=== PATIENT | female | born 1975 | race Caucasian/White ===

== ENCOUNTER 2017-12-17 05:21 | Day surgery (SDC) | payer OTHER ==
[~2017-12-17] VITALS: Ht 160 cm; Wt 67.7 kg
[2017-12-17] MEDS ORDERED: LIDOCAINE-MPF 1%, 2ML ONE (06:01)
[2017-12-17] MEDS ORDERED: LACTATED RINGERS 1,000 ML IV SCH (06:20)
[2017-12-17] MEDS ORDERED: ACET-1600 PO (06:24)
[2017-12-17 06:30] VITALS: BP 131/70
[2017-12-17] MEDS ORDERED: LIDOCAINE-MPF 1%, 2ML INFIL ONE (06:30)
[2017-12-17 06:31] LABS: MEAN CORPUSCULAR HEMOGLOBIN 28.8 pg (27.0-34.8); MEAN CORPUSCULAR HGB CONC 32.9 g/dL (32.4-35.8); MEAN CORPUSCULAR VOLUME 87.7 fL (80-100); MEAN PLATELET VOLUME 7.8 fL (7.4-10.4); PLATELET COUNT 348 x10^3/uL (130-400); RED BLOOD COUNT 4.48 x10^6/uL (3.82-5.3); RED CELL DISTRIBUTION WIDTH 15.3 % (9.6-15.2)
[2017-12-17 06:31] LABS: HCG UR SG 1.025 (1.003-1.030)
[2017-12-17 06:34] LABS: INTERNATIONAL NORMALIZED RATIO 0.98 (0.93-1.1); PROTHROMBIN TIME 10.1 Seconds (9.6-11.5)
[2017-12-17 06:36] LABS: ALBUMIN 3.7 g/dL (3.4-5.0); ANION GAP 8 mmol/L (5-15); CALCIUM 8.9 mg/dL (8.5-10.1); CHLORIDE 108 mmol/L (98-107); CREATININE 0.62 mg/dL (0.55-1.02)
[2017-12-17 06:43] LABS: ALANINE AMINOTRANSFERASE 26 U/L (12-78); ALKALINE PHOSPHATASE 72 U/L (45-117); BILIRUBIN,TOTAL 0.2 mg/dL (0.2-1.0); TOTAL PROTEIN 7.8 g/dL (6.4-8.2)
[2017-12-17] MEDS ORDERED: BUPIVACAINE/PF 0.25% ONE (06:50)
[2017-12-17] MEDS ORDERED: EPINEPHRINE 1 MG/ML, 1ML ONE (06:51)
[2017-12-17 07:01] LABS: BASOPHILS # (AUTO) 0.02 x10^3/uL (0-0.1); BASOPHILS % (AUTO) 0 % (0-1); EOSINOPHILS # (AUTO) 0.41 x10^3/uL (0-0.4); EOSINOPHILS % (AUTO) 5 % (1-7); LYMPHOCYTES # (AUTO) 2.22 x10^3/uL (1-3.4); LYMPHOCYTES % (AUTO) 26 % (22-44); MD SCAN; MONOCYTES # (AUTO) 0.52 x10^3/uL (0.2-0.8); MONOCYTES % (AUTO) 6 % (2-9); NEUTROPHILS # (AUTO) 5.39 x10^3/uL (1.8-6.8); NEUTROPHILS % (AUTO) 63 % (42-75)
[2017-12-17] MEDS ORDERED: FENTANYL PF 250 MCG/5ML ONE (07:01)
[2017-12-17] MEDS ORDERED: MIDAZOLAM 1 MG/ML, 2ML ONE (07:01)
[2017-12-17] MEDS ORDERED: SCOPOLAMINE PATCH, 1.5MG PATCH.TD72 TD ONE (07:30)
[2017-12-17] MEDS ORDERED: GABAPENTIN 300 MG CAPSULE PO ONE (07:30)
[2017-12-17] MEDS ORDERED: OxyconTIN ER 10 MG TAB.ER PO ONE (07:30)
[2017-12-17] MEDS ORDERED: ACETAMINOPHEN 500 MG TABLET PO ONE (07:30)
[2017-12-17] MEDS ORDERED: KETOROLAC 30 MG/1 ML ONE (07:47)
[2017-12-17] MEDS ORDERED: ROCURONIUM 10 MG/ML,10ML ONE (07:47)
[2017-12-17] MEDS ORDERED: PROPOFOL 10 MG/ML, 20ML ONE (07:47)
[2017-12-17] MEDS ORDERED: DEXAMETHASONE 4 MG/ML, 1ML ONE (07:47)
[2017-12-17] MEDS ORDERED: ONDANSETRON 2MG/ML, 2ML ONE (07:47)
[2017-12-17] MEDS ORDERED: CEFAZOLIN 1,000 MG ONE (07:47)
[2017-12-17] MEDS ORDERED: SUCCINYLCHOLINE 20 MG/ML, 10ML ONE (07:47)
[2017-12-17] MEDS ORDERED: MEPERIDINE/PF 25MG/0.5ML IVPush PRN (09:30)
[2017-12-17] MEDS ORDERED: METOCLOPRAMIDE 5 MG/ML, 2ML IV PRN (09:30)
[2017-12-17] MEDS ORDERED: HYDROmorphone 1 MG/ML, 1ML IV PRN (09:30)
[2017-12-17] MEDS ORDERED: hydrALAzine 20 MG/ML, 1ML IV PRN (09:30)
[2017-12-17] MEDS ORDERED: LABETALOL 5MG/ML, 20ML IV PRN (09:30)
[2017-12-17] MEDS ORDERED: KETOROLAC 30 MG/1 ML IV PRN (09:30)
[2017-12-17] MEDS ORDERED: PROMETHAZINE 25 MG/ML, 1ML IV PRN (09:30)
[2017-12-17] MEDS ORDERED: OXYcodone 5 MG/5 ML ORAL.SOL UDC PO PRN (09:30)
[2017-12-17] MEDS ORDERED: ALBUTEROL SULFATE 2.5 MG/3 ML NPPB PRN (09:30)
[2017-12-17] MEDS ORDERED: ONDANSETRON 2MG/ML, 2ML IVPush PRN (09:30)
[2017-12-17] MEDS ORDERED: FENTANYL PF 100 MCG/2ML ONE (09:48)
[2017-12-17] MEDS: FENTANYL PF 100 MCG/2ML IV PRN ×2 (09:50→10:05)
== END 2017-12-17 12:50 | disposition home or self-care (01) ==
LOC: OUT 05:21
PROVIDERS: ATTEND Specialist
DX: Z30.2 Encounter for sterilization (principal); T83.89XA Other specified complication of genitourinary prosthetic devices, implants and grafts, initial encounter; Y83.8 Other surgical procedures as the cause of abnormal reaction of the patient, or of later complication, without mention of misadventure at the time of the procedure; Y92.89 Other specified places as the place of occurrence of the external cause
CPT/HCPCS: 36415; 58301; 58670; 80053; 81025; 85025; 85610; 85730; 88302; J0171; J0330; J0690; J1100; J1885; J2250; J2405; J2704; J3010; J3490; J7120